=== PATIENT | female | born 1965 | race Caucasian/White ===

== ENCOUNTER → 2017-02-28 | Outpatient (CLI) | payer OTHER | END | disposition home or self-care (01) | LOC: GMAM 12:48 | PROVIDERS: ATTEND Family Medicine | DX: E03.9 Hypothyroidism, unspecified (principal) ==

== ENCOUNTER → 2017-03-13 | Outpatient (CLI) | payer OTHER ==
--- NOTE | 2017-03-14 03:47 | CT ---
Procedure: CT ABDOMEN PELVIS WITHOUT THEN WITH IV CONTRAST Exam Date: 03/13/2017 Ordering Provider: RAOUL BANDA Clinical Indication: CHRONIC HEP C Comparison: 07/09/2016 hepatic ultrasound TECHNIQUE: 5 mm images were taken through the abdomen and pelvis before and after the administration of nonionic intravenous contrast material. Seven minute delayed images were obtained. Oral contrast was not administered. Coronal and sagittal reformatted images were generated. This exam was performed according to our departmental dose optimization program which includes use of automated exposure control, adjustment of the mA and/or kV according to patient size and/or use of iterative reconstruction technique. FINDINGS: Lower chest: Nonacute Abdomen: Liver and biliary system: Hepatomegaly. Hepatic steatosis. No liver lesions. No biliary ductal dilatation. Prior cholecystectomy. Spleen: Unremarkable Pancreas: Unremarkable Adrenal glands: Unremarkable Kidneys: No suspicious lesions or hydronephrosis in either kidney. Renal collecting systems and ureters are unremarkable. Lymph nodes: No lymphadenopathy Retroperitoneum, peritoneal cavity, abdominal wall: No ascites. No free intraperitoneal air. Vessels: No abdominal aortic aneurysm. Pelvis: Lymph nodes: No lymphadenopathy. Peritoneal cavity: No pelvic free fluid Bowel: No bowel obstruction. Normal appendix. No bowel wall thickening. Bladder: Unremarkable Pelvic organs: Prior hysterectomy. Bones: Nonacute. Postsurgical changes in the right femur. IMPRESSION: 1. Hepatomegaly and hepatic steatosis. No liver lesions. Electronically signed by: Delta Benitez MD 03/14/2017 3:47 AM CDT
== END ==
LOC: CT 08:50
DX: B18.2 Chronic viral hepatitis C (principal); R16.0 Hepatomegaly, not elsewhere classified; K76.0 Fatty (change of) liver, not elsewhere classified

== ENCOUNTER → 2017-05-09 | Outpatient (CLI) | payer OTHER | END | disposition home or self-care (01) | LOC: LAB.O 13:08 | DX: B18.2 Chronic viral hepatitis C (principal) ==

== ENCOUNTER → 2017-09-10 | Outpatient (CLI) | payer OTHER | LOC: GMAM 10:12 | PROVIDERS: ATTEND Family Medicine | DX: G40.301 Generalized idiopathic epilepsy and epileptic syndromes, not intractable, with status epilepticus (principal); E03.9 Hypothyroidism, unspecified; Z79.899 Other long term (current) drug therapy ==

== ENCOUNTER → 2017-09-20 | Outpatient (CLI) | payer OTHER | END | disposition home or self-care (01) | LOC: LAB.O 14:49 | DX: B18.2 Chronic viral hepatitis C (principal) ==

== ENCOUNTER → 2017-11-21 | Outpatient (CLI) | payer OTHER | END | disposition home or self-care (01) | LOC: LAB.O 09:13 | DX: B18.2 Chronic viral hepatitis C (principal) ==

== ENCOUNTER → 2018-02-15 | Outpatient (CLI) | payer OTHER | LOC: LAB.O 11:18 | PROVIDERS: ATTEND Family Medicine | DX: B18.2 Chronic viral hepatitis C (principal); E78.2 Mixed hyperlipidemia; E03.9 Hypothyroidism, unspecified; R73.9 Hyperglycemia, unspecified; Z79.899 Other long term (current) drug therapy ==

== ENCOUNTER → 2018-04-21 | Outpatient (CLI) | payer OTHER ==
--- NOTE | 2018-04-21 16:15 | US ---
EXAM DESCRIPTION: Abdomen,Complete CLINICAL HISTORY: HEP C COMPARISON: CT abdomen March 13, 2017 TECHNIQUE: Complete abdominal ultrasound FINDINGS: Visualized portions of the pancreas are unremarkable. No peripancreatic fluid. Bowel gas obscures some areas. Normal caliber of the aorta. Normal appearance of the inferior vena cava. Liver parenchyma is homogeneous in texture with increased echogenicity consistent with mild to moderate hepatic steatosis. No liver mass or intrahepatic bile duct dilatation. No liver surface irregularity. Normal appearance of hepatic veins and portal vein. Gallbladder appears normal with no intraluminal stones. No gallbladder wall thickening. Common bile duct is normal in caliber measuring 4.0 mm. The right kidney measures 10 cm in length. Normal renal cortical echogenicity. The renal cortex appears somewhat thinned diffusely. Correlate with renal function studies. No right renal mass, shadowing stone or cyst. There is no hydronephrosis. Spleen is normal in size. No focal splenic lesion. The left kidney measures 11.2 cm in length. Normal renal cortical echogenicity. The renal cortical thickness appears somewhat decreased. Correlate with renal function studies. Kidney cortex did not appear distended at the time of the CT exam March 13, 2017. No left renal mass, shadowing stone or cyst. There is no hydronephrosis. IMPRESSION: Mild renal cortical thinning bilaterally. Correlate with renal function studies. Mild hepatic steatosis. Electronically signed by: Rashid Rogel MD 04/21/2018 4:14 PM CDT
== END ==
LOC: US 09:31
DX: K74.0 Hepatic fibrosis (principal); B19.20 Unspecified viral hepatitis C without hepatic coma; K50.00 Crohn's disease of small intestine without complications; K76.0 Fatty (change of) liver, not elsewhere classified

== ENCOUNTER → 2018-08-26 | Outpatient (CLI) | payer OTHER | LOC: GMAM 11:36 | PROVIDERS: ATTEND Family Medicine | DX: E03.9 Hypothyroidism, unspecified (principal); Z79.899 Other long term (current) drug therapy ==

== ENCOUNTER → 2019-03-27 | Outpatient (CLI) | payer OTHER | LOC: GMAM 10:50 | PROVIDERS: ATTEND Family Medicine | DX: E03.9 Hypothyroidism, unspecified (principal); E78.2 Mixed hyperlipidemia; Z79.899 Other long term (current) drug therapy ==

== ENCOUNTER → 2019-06-23 | Outpatient (CLI) | payer OTHER | LOC: GMAM 10:47 | PROVIDERS: ATTEND Family Medicine | DX: E78.2 Mixed hyperlipidemia (principal); Z79.899 Other long term (current) drug therapy; E03.9 Hypothyroidism, unspecified; R73.9 Hyperglycemia, unspecified ==

== ENCOUNTER → 2019-06-29 | Outpatient (CLI) | payer OTHER | LOC: GMAM 19:26 | PROVIDERS: ATTEND Family Medicine | DX: Z79.899 Other long term (current) drug therapy (principal) | CPT/HCPCS: 80307; G0480 ==

== ENCOUNTER → 2019-12-28 | Outpatient (CLI) | payer OTHER | LOC: GMAM 10:34 | PROVIDERS: ATTEND Family Medicine | DX: Z79.899 Other long term (current) drug therapy (principal) ==